=== PATIENT | female | born 1995 | race Caucasian/White ===

== ENCOUNTER 2025-09-09 16:50 | Emergency (ER) | payer OTHER, SELFPAY ==
--- NOTE | ~2025-09-09 | XR_ITS ---
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 Findings: No acute fracture or malalignment. No significant degenerative changes. Soft tissues unremarkable. Impression: No acute fracture or malalignment. Reviewed, dictated and finalized at location P. Y SUPERVISOR Impression: No acute fracture or malalignment.
--- NOTE | ~2025-09-09 | XR_ITS ---
EXAMINATION: XR wrist RT min 3V DATE: 09/09/2025 17:27 INDICATION: Injury. TECHNIQUE: 3 views of the right wrist. were obtained. COMPARISON: None. FINDINGS: No acute fractures at the right wrist. Alignment of the intercarpal joints are normal. Mild nonspecific soft tissue swelling at the wrist. IMPRESSION: 1. No acute fractures at the right wrist. Mild soft tissue swelling. If symptoms are localized and persistent repeat x-ray or additional imaging with MRI is suggested. Reviewed, dictated and finalized at location T. ICAL NURSE EDUCATOR IMPRESSION: 1. No acute fractures at the right wrist. Mild soft tissue swelling. If symptom s are localized and persistent repeat x-ray or additional imaging with MRI is s uggested.
[2025-09-09 17:16] VITALS: BP 125/85; PULSE 80; RESP 16; TEMP 36.9; O2SAT 100
--- NOTE | 2025-09-09 18:01 | ED_ITS ---
HPI - Extremity Injury (Upper) General Chief Complaint: Extremity Injury, Upper Stated Complaint: R wrist pain / WC Time Seen by Provider: 09/09/25 17:40 Source: patient and RN notes reviewed Mode of arrival: ambulatory Limitations: no limitations History of Present Illness HPI narrative: 30-year-old female presents [facility] complaining of right wrist injury approximately 2 days ago. Patient says use at work trying to move a potato cutter and she struck it too hard causing pain and swelling to her right wrist/palm. Patient reports shooting pain upper forearm. Patient also reports paresthesias to her pinky and thumb. Patient denies any other hand is functions. Patient denies any other injuries. She has tried ice and Tylenol with some relief. Related Data Home Medications ?Medication ?Instructions ?Recorded ?Confirmed ?Last Taken ?Type No Home Medications 09/09/25 09/09/25 U nknown History Allergies Allergy/AdvReac Type Severity Reaction Status Date / Time No Known Allergies Allergy Verified 09/09/25 17:12 Review of Systems Review of Systems: CONSTITUTIONAL: Denies fever, chills, or sweats. EYES: Denies visual changes, redness, or discharge. ENT: Denies rhinorrhea, congestion, sore throat, or otalgia. CARDIOVASCULAR: Denies chest pain, palpitations, or edema. RESPIRATORY: Denies cough or dyspnea. GASTROINTESTINAL: Denies abdominal pain, nausea, vomiting, or diarrhea. GENITOURINARY: Denies dysuria or hematuria. SKIN: Denies rash, wound, or itching. MUSCULOSKELETAL: Denies back pain, joint pain, or myalgia. Positive for right wrist injury and swelling NEUROLOGIC: Denies headache, numbness, or weakness. PSYCHIATRIC: Denies anxiety or depression. All other systems reviewed are negative, except as documented in HPI. PMFSH Comments At the time of my signature, I reviewed and agree with the nursing past medical, surgical, social, and family history. There is no relevant family history pertinent to the patient complaint. Exam Narrative: GENERAL: This is a well-nourished, well-developed adult, in no apparent distress. They are non ill-appearing, nontoxic appearing. HEAD: normocephalic, atraumatic. EYES: Sclera clear/white. Vision is grossly intact. Conjunctiva normal. Extraocular movement intact. EARS: External ears normal Hearing grossly intact. NOSE: External nose normal THROAT: Mucous membranes moist NECK: Neck supple CARDIOVASCULAR: Regular rate and rhythm RESPIRATORY: Respiratory rate normal, respiratory effort nonlabored, no respiratory distress NEURO: awake, alert, and oriented to person, place and time. There were no obvious focal neurologic abnormalities. EXTREMITIES: Right wrist/hand: No obvious deformity, injury, bruising, redness. Mild swelling to the right wrist. There is pain through full range of motion. Mild tenderness to palpation to the wrist.. Capillary refill less than 3 seconds. Right radial Pulse 2 +palpable. Normal sensation. Neurovascular status intact distal injury. Patient make a fist, thumbs-up sign, stop sign, okay sign. Patient can can feel examiner touch the tips of all of her fingers. Radial, ulnar, median nerve distribution intact. Strength 5/5. BACK: Nontender without deformity. Course Course Emergency Course: Portions of this record may have been created with voice recognition software Level of Care: Express Care Visit Vital Signs Vital signs: Vital Signs Temperature 98.5 F 09/09/25 17:16 Pulse Rate 80 09/09/25 17:16 Respiratory Rate 16 09/09/25 17:16 Blood Pressure 125/85 09/09/25 17:16 Pulse Oximetry 100 09/09/25 17:16 Temperature 98.5 F 09/09/25 17:16 Pulse Rate 80 09/09/25 17:16 Respiratory Rate 16 09/09/25 17:16 Blood Pressure 125/85 09/09/25 17:16 Pulse Oximetry 100 09/09/25 17:16 Reviewed MDM - Extremity Injury (Upper) MDM Narrative Medical decision making narrative: X-ray right wrist and hand is negative for any fractures or acute findings. Tissue swelling noted on imaging near the wrist. Discussed rice therapy and supportive care. Discussed physical exam findings. Advised supportive measures and signs/symptoms to go to the ER. Pt is appropriate for outpt treatment and f/u. Differential Diagnosis Differential diagnosis: Likely sprain and strain of wrist, fracture of wrist and fracture of hand Imaging Data Radiologist's impression: ITS Impressions Hand X-Ray 09/09/25 17:42 Impression: No acute fracture or malalignment. Wrist X-Ray 09/09/25 17:43 IMPRESSION: 1. No acute fractures at the right wrist. Mild soft tissue swelling. If symptoms are localized and persistent repeat x-ray or additional imaging with MRI is suggested. Critical Care Time Critical Care Time Critical Care Time: No Discharge Plan Discharge Clinical Impression: Injury of right wrist Qualifiers: Encounter type: initial encounter Qualified Code(s): S69.91XA - Unspecified injury of right wrist, hand and finger(s), initial encounter Patient Disposition: Home Condition: Stable Instructions: Wrist Injury (ED) Additional Instructions: The x-ray of your right hand and wrist are negative for any fractures or acute findings. Rest and elevate the wrist; uses tolerated Apply ice 15-20 minute intervals several times a day Keep it wrapped with PHIL or use a wrist cock-up splint You may take ibuprofen 600 mg to 800 mg every 6-8 hours. Do not exceed more than 800 mg of ibuprofen per dose. Do not exceed more than 3200 mg ibuprofen in a day. You may take up to 1000 mg Tylenol every 6-8 hours. Do not exceed 1000 mg per dose, do exceed more than 4000 mg of Tylenol in a day. Follow up with your primary care provider or orthopedist as needed in 1-2 weeks especially if pain is persistent after 10 days. Patient Language: Trinid[place] Prescriptions: No Action No Home Medications Follow-up/Referrals: PHYSICIAN,ADVERTISING TRAFFIC MANAGER [Primary Care Provider, Internal Medicine] Gonzales Chapman MD [Physician, Orthopedics] Stand Alone Forms: Work/School Release IP Time of Disposition: 17:59
== END 2025-09-09 18:03 | disposition home or self-care (01) ==
DX: S69.91XA Unspecified injury of right wrist, hand and finger(s), initial encounter (principal); W22.8XXA Striking against or struck by other objects, initial encounter
CPT/HCPCS: 73110; 73130; 99203; G0463